=== PATIENT | female | born 1965 | race Caucasian/White ===

== ENCOUNTER 2022-08-30 06:11 | Day surgery (SDC) | payer BC ==
[~2022-08-30 06:11] MED LIST: Dextrose 5%-0.45% NaCl 1,000 ML IV SCH; Sodium Chloride 0.9% 10 ML Syringe FLUSH PRN; Sodium Chloride 0.9% 10 ML Syringe FLUSH SCH
[2022-08-30] MEDS ORDERED: fentaNYL 100 MCG/2 ML SDV IV ONE ×3 (06:12→07:35)
[2022-08-30] MEDS ORDERED: Midazolam 1 MG/ML 2 ML SDV IV ONE ×6 (06:12→07:42)
[2022-08-30] MEDS ORDERED: Midazolam 1 MG/ML 2 ML SDV ONE (06:21)
[2022-08-30] MEDS ORDERED: fentaNYL 100 MCG/2 ML SDV ONE (06:21)
== END 2022-08-30 09:50 | disposition home or self-care (01) ==
LOC: DL.ENDO 06:11
PROVIDERS: ATTEND Internal Medicine Gastroenterology
DX: Z12.11 Encounter for screening for malignant neoplasm of colon (principal); E66.09 Other obesity due to excess calories; I10 Essential (primary) hypertension; Z98.890 Other specified postprocedural states; Z68.32 Body mass index [BMI] 32.0-32.9, adult
CPT/HCPCS: 45378; J2250; J3010; J7042